=== PATIENT | female | born 1965 | race Caucasian/White ===

== ENCOUNTER 2017-03-03 13:09 | Emergency (ER) | payer OTHER ==
[~2017-03-03] VITALS: Ht 157.5 cm; Wt 79.5 kg
[~2017-03-03 13:09] MED LIST: FLUD0.1T PO; LEVO50TA11 PO; MECL-103 PO
--- OUTSIDE RECORDS SUMMARY | 2017-03-03 13:14 | XMS REPORT | Referral Summary ---
Author Author [facility] Organization [facility] Address Unknown Phone Unavailable Care Team Providers Care Loss Prevention Auditor Name Role Phone Alexandrea Marrero Primary Care Physician [phone] Encounter [facility] DEVENDRA [id number] Date(s): 12/25/15 - 12/25/15 [facility] [address] [place] [address] [phone] Discharge Diagnosis: Bilateral sacroiliitis. Discharge Disposition: 01-Home or Self Care Attending Physician: John Bess MD Admitting Physician: John Bess MD Vital Signs Most recent to 1 oldest [Reference Range]: Temperature Tympanic 36.3 degC [36.6-38.1 degC] *LOW* (12/25/15 12:20 PM) Peripheral Pulse 64 bpm Rate [60-100 bpm] (12/25/15 12:20 PM) Respiratory Rate 16 br/min [14-20 br/min] (12/25/15 12:20 PM) Blood Pressure 140/87 mmHg [90-140/60-90 mmHg] (12/25/15 12:20 PM) SpO2 100 % (12/25/15 12:20 PM) Problem List Condition Effective Dates Status Health Status Informant Acute back Active pain(Confirmed) Strain of lumbar Active region(Confirmed) Obesity(Confirmed) Active patient Allergies, Adverse Reactions, Alerts Substance Reaction Severity Status [place] Dizziness Medium Active Nausea penicillin Active Medications ibuprofen 0 Refill(s) Start Date: 09/05/14 Status: Ordered meloxicam 15 mg oral tablet 15 mg 1 tabs, Oral, Daily, # 30 tabs, 1 Refill(s), Pharmacy: [facility] [id number], 1 tabs Oral Daily,x30 days Start Date: 07/18/15 Stop Date: 09/16/15 Status: Ordered metFORMIN 500 mg oral tablet See Instructions, 1 tabs Oral BID, 0 Refill(s) Start Date: 12/25/15 Status: Ordered Results No data available for this section Immunizations No data available for this section Procedures Procedure Date Related Diagnosis Body Site Injection Sacroiliac Joint (Right)1 12/25/15 Cardiac catheterization 04/10/15 c section 1auto-populated from documented surgical case Social History Social History Type Response Smoking Status Never smoker Assessment and Plan No data available for this section
--- OUTSIDE RECORDS SUMMARY | 2017-03-03 13:14 | XMS REPORT | Referral Summary ---
Author Author [facility] Organization [facility] Address Unknown Phone Unavailable Care Team Providers Care Medical Nurse Name Role Phone Alexandrea Marrero Primary Care Physician [phone] Encounter VC Date(s): 07/31/15 - 07/31/15 [facility] [address] [place] [address] [place] Discharge Diagnosis: Lumbago syndrome Discharge Disposition: 01-Home or Self Care Attending Physician: Bernardo Perrin MD Admitting Physician: Bernardo Perrin MD Vital Signs Most recent to 1 oldest [Reference Range]: Temperature Tympanic 36.3 degC [36.6-38.1 degC] *LOW* (07/31/15 9:51 AM) Peripheral Pulse 88 bpm Rate [60-100 bpm] (07/31/15 9:51 AM) Respiratory Rate 16 br/min [14-20 br/min] (07/31/15 9:51 AM) Blood Pressure 136/96 mmHg [90-140/60-90 mmHg] (07/31/15 9:51 AM) Problem List Condition Effective Dates Status Health Status Informant Acute back Active pain(Confirmed) Strain of lumbar Active region(Confirmed) Obesity(Confirmed) Active patient Allergies, Adverse Reactions, Alerts Substance Reaction Severity Status [place] Dizziness Medium Active Nausea penicillin Active Medications ibuprofen 0 Refill(s) Start Date: 09/05/14 Status: Ordered meloxicam 15 mg oral tablet 15 mg 1 tabs, Oral, Daily, # 30 tabs, 1 Refill(s), Pharmacy: [facility] [id number], 1 tabs Oral Daily,x30 days Start Date: [...] Smoking Status Never smoker Assessment and Plan Extracted from: Title: Office Visit Note Author: Bernardo Perrin MD Date: 07/31/15 Assessment/Plan Lumbago syndrome Plan:I reviewed the MRI. It does showright central disc protrusion at L1-L2. I am going to see if we can consult Dr. Tyler for possible epidural. Andcontinue same restrictions.
--- OUTSIDE RECORDS SUMMARY | 2017-03-03 13:14 | XMS REPORT ---
Author Author Alexandrea Marrero [facility] eClinical[employer] Address Unknown Phone Unavailable Care Team Providers Care Pump Room Operator Name Role Phone Alexandrea Marrero Unavailable Allergies No Known Allergies Problems Problem Type Condition ICD-9 Code Onset Dates Condition Status Problem Overweight 278.02 Active Medications No Known Medications Vital Signs Date/Time: Jun 08, 2014 Height 62 inches Weight 196.4 lbs Temperature 98.9 F Blood Pressure Diastolic 82 mm Hg Blood Pressure Systolic 110 mm Hg Cardiac Monitoring Heart Rate 76 Beats per Minute BMI 35.92 Index Respiratory Rate 16 per Minute Results No Known Results Summary Purpose eClinicalWorks Submission
--- OUTSIDE RECORDS SUMMARY | 2017-03-03 13:14 | XMS REPORT ---
Author Author Alexandrea Marrero [facility] eClinical[employer] Address Unknown Phone Unavailable Care Team Providers Care Hat Ironer Name Role Phone Alexandrea Marrero CP Unavailable Allergies, Adverse Reactions, Alerts Substance Reaction Event Type Penicillin throat swelling Drug Allergy Problems Problem Type Condition ICD-9 Code Onset Dates Condition Status Assessment Overweight 278.02 Active Assessment Routine general medical examination at health care facility V70.0 Active Problem Overweight 278.02 Active Medications Medication Code System Code Instructions Start Date End Date Status Dosage Phentermine HCl [facility] [address]-69 15 MG Orally Once a day April 08, 2015 May 08, 2015 1 capsule Procedures Procedure Coding System Code Date ECG RECORDING CPT-4 02413 April 08, 2015 OFFICE VISIT, EST-LOW COMPLEXITY (15 MIN.) CPT-4 72178 April 08, 2015 Vital Signs Date/Time: April 08, 2015 Height 62 in Weight 203.5 lbs Temperature 98.5 F Blood Pressure Diastolic 76 mm Hg Blood Pressure Systolic 106 mm Hg Cardiac Monitoring Heart Rate 96 /min BMI 37.22 Index Respiratory Rate 16 /min Results No Known Results Summary Purpose eClinicalWorks Submission
--- OUTSIDE RECORDS SUMMARY | 2017-03-03 13:14 | XMS REPORT | Continuity of Care Document ---
Author Author [facility] Organization [facility] Address Unknown Phone Unavailable Care Team Providers Care Agile Tester Name Role Phone PARRIS MORRIS MD Primary Care Physician [phone] Problems Medical Problems Problem Onset Date Status Migraine Unknown Active Muscle spasm Unknown Active Dizziness Unknown Active Migraine Unknown Active Patient left without being seen Unknown Active Medications Medication Dose Route Sig Days/Qty Instructions Order Date Discontinued Date Status [No Home Meds] 03/21/10 04/08/12 Discontinued Social History Social History Problem Response Recorded Date/Time Hx Alcohol Use No 09/18/2014 8:46am Hospital Discharge Instructions No hospital discharge instructions. Plan of Care No plan of care. Functional Status Query Response Date Recorded Physical Hygiene Self July 25, 2014 9:30pm Physical Hygiene Self July 25, 2014 9:30pm Allergies, Adverse Reactions, Alerts Allergen Type Severity Reaction Status Last Updated Penicillin Allergy Unknown Active 01/07/15 Immunizations Name Given Type Hx Tetanus, Diptheria, Pertussis No Historical Hx Tetanus Diptheria No Historical Hx Tetanus, Diptheria, Pertussis No Historical Hx Tetanus Toxoid Vaccination No Historical Vital Signs Acute Vital Signs Vital Response Date/Time Temperature (Fahrenheit) 97.6 deg F (96.8 - 99.1) Temperature (Calculated Celsius) 36.87260 degrees C (36.0 - 37.3) Pulse Rate (adult) 93 bpm (60 - 100) Respiratory Rate 18 breaths/min (10 - 20) O2 Sat by Pulse Oximetry 96 % (90 - 100) Blood Pressure 134/76 mm Hg Height (Feet) 0 feet Height (Inches) 0 inches Results Test Source Date Result Interp. Ref. Range Comments Activated Partial Thromboplast Time March 30, 2011 11:25am 31.6 SEC N 24- 36 Alanine Aminotransferase (ALT/SGPT) July 25, 2014 9:47pm 40 U/L N 9- 52 Albumin July 25, 2014 9:47pm 4.1 G/DL N 3.5-5.0 Albumin/Globulin Ratio July 25, 2014 9:47pm 1.2 RATIO N 1.1-2.2 Alkaline Phosphatase July 25, 2014 9:47pm 112 U/L N 38-126 Anion Gap July 25, 2014 9:47pm 10 MEQ/L N 5-15 Arterial Blood Base Excess March 30, 2011 8:45pm 1.8 MMOL/L N -2.0-2.0 Arterial Blood HCO3 March 30, 2011 8:45pm 26 MEQ/L N 22-26 Arterial Blood Oxygen Content March 30, 2011 8:45pm 2.0 - Arterial Blood Oxygen Saturation March 30, 2011 8:45pm 97.0 % N 95.0- 98.0 Arterial Blood Partial Pressure CO2 March 30, 2011 8:45pm 37 MMHG N 34- 45 Arterial Blood Total CO2 March 30, 2011 8:45pm 26.8 MEQ/L N 23-27 Arterial Blood pH March 30, 2011 8:45pm 7.450 N 7.350-7.450 Arterial Blood pO2 at Patient Temp March 30, 2011 8:45pm 87 MMHG N 80- 100 Aspartate Amino Transf (AST/SGOT) July 25, 2014 9:47pm 24 U/L N 14- 36 Atypical/Reactive Lymphocytes April 29, 2009 4:45pm 0.1 T/MM3 H 0-0 B-Type Natriuretic Peptide March 30, 2011 11:25am < 15 PG/ML L 15-100 BUN/Creatinine Ratio July 25, 2014 9:47pm 26 RATIO N 6-26 Band Neutrophils # March 30, 2011 11:25am 0.1 T/MM3 - Band Neutrophils % March 30, 2011 11:25am 1.0 % N 0-6 Basophils # (Auto) July 25, 2014 9:44pm 0.1 T/MM3 N 0-0.2 Basophils # (Manual) August 29, 2009 1:45am 0.0 T/MM3 N 0-0.2 Basophils % (Manual) August 29, 2009 1:45am 0.0 % N 0-2 Basophils (%) (Auto) July 25, 2014 9:44pm 0.7 % N 0-2 Blood Urea Nitrogen July 25, 2014 9:47pm 18.0 MG/DL H 7-17 Calcium Level July 25, 2014 9:47pm 9.4 MG/DL N 8.4-10.2 Calculated Osmolality July 25, 2014 9:47pm 276 MOSM/KG N 261-280 Carbon Dioxide Level July 25, 2014 9:47pm 29 MEQ/L N 22-30 Chemistry Specimen Hemolysis July 25, 2014 9:47pm < 15 0-25 0-25: No Hemolysis.26-70: Slight Hemolysis - can falsely elevate K and Urine Protein. 71-285: Moderate Hemolysis - can falsely elevate K, Troponin I, CA 19-9, PTH, CSF GLucose, and Urine Protein, and can falsely decrease Phenytoin. 286-999: Gross Hemolysis - can falsely elevate K, Troponin I, CA 19-9, PTH, CSF Glucose, and Urine Protine, and can falsely decrease Phenytoin. Recommend specimen recollection. Chloride Level July 25, 2014 9:47pm 102 MEQ/L N 98-107 Cholesterol Level March 20, 2008 9:35am 153 MG/DL N 120-200 Cholesterol/HDL Ratio March 20, 2008 9:35am 5.0 RATIO H 0-4.0 Conjugated Bilirubin March 30, 2011 11:25am 0.00 MG/DL N 0.00-0.30 Creatinine July 25, 2014 9:47pm 0.7 MG/DL N 0.7-1.2 D-Dimer March 30, 2011 8:20pm 165 NG/ML N 0-230 <224 NG/ML=PRESUMPTIVE NEGATIVE FOR PE OR DVT>224 NG/ML=ADDITIONAL EVALUATION FOR PE OR DVT RECOMMENDED Differential Total Cells Counted March 30, 2011 11:25am 100 % - Eosinophils # (Auto) July 25, 2014 9:44pm 0.3 T/MM3 N 0-0.5 Eosinophils # (Manual) March 30, 2011 11:25am 0.2 T/MM3 N 0-0.5 Eosinophils % (Manual) March 30, 2011 11:25am 2.0 % N 0-4 Eosinophils (%) (Auto) July 25, 2014 9:44pm 2.3 % N 0-4 Free Thyroxine March 20, 2008 9:35am 0.94 NG/DL N 0.78-2.19 Globulin July 25, 2014 9:47pm 3.4 G/DL N 2.4-3.6 Glomerular Filtration Rate Calc July 25, 2014 9:47pm 89 - Glucose Level July 25, 2014 9:47pm 147 MG/DL H 65-110 Group A Streptococcus Screen March 14, 2013 11:45am Negative - Strep culture confirmation to follow HDL Cholesterol Direct March 20, 2008 9:35am 26 MG/DL L 40-60 Hematocrit July 25, 2014 9:44pm 42.7 % N 36-46 Hemoglobin July 25, 2014 9:44pm 14.3 GM/DL N 12-16 Human Chorionic Gonadotropin, Qual March 30, 2011 11:25am Negative - Icterus Index July 25, 2014 9:47pm < 2 0-7 Immature Granulocyte # (Auto) July 25, 2014 9:44pm 0.04 T/MM3 H 0.00- 0.03 Immature Granulocyte % (Auto) July 25, 2014 9:44pm 0.4 % N 0.0-0.5 LDL Cholesterol, Calculated March 20, 2008 9:35am [id number] - Lab Scanned Report January 07, 2015 11:47am LAB TEST FORM REQUEST - Lymphocytes # (Auto) July 25, 2014 9:44pm 4.0 T/MM3 N 1-4.8 Lymphocytes # (Manual) March 30, 2011 11:25am 3.7 T/MM3 N 1-4.8 Lymphocytes % (Manual) March 30, 2011 11:25am 36.0 % N 23-45 Lymphocytes (%) (Auto) July 25, 2014 9:44pm 35.9 % N 23-45 Mean Corpuscular Hemoglobin July 25, 2014 9:44pm 29.4 UUG N 26-34 Mean Corpuscular Hemoglobin Concent July 25, 2014 9:44pm 33.5 GM/DL N 31-37 Mean Corpuscular Volume July 25, 2014 9:44pm 87.7 UM3 N 80-100 Mean Platelet Volume July 25, 2014 9:44pm 10.8 UM3 N 9.4-12.4 Monocytes # (Auto) July 25, 2014 9:44pm 0.6 T/MM3 N 0-0.8 Monocytes # (Manual) August 29, 2009 1:45am 0.7 T/MM3 N 0-0.8 Monocytes % (Manual) August 29, 2009 1:45am 5.0 % N 0-9.0 Monocytes (%) (Auto) July 25, 2014 9:44pm 5.5 % N 0-9.0 Neutrophils # (Auto) July 25, 2014 9:44pm 6.1 T/MM3 N 1.8-7.7 Neutrophils # (Manual) March 30, 2011 11:25am 6.3 T/MM3 N 1.8-7.7 Neutrophils % (Manual) March 30, 2011 11:25am 61.0 % N 33-66 Neutrophils (%) (Auto) July 25, 2014 9:44pm 55.2 % N 33-66 Oxygen Delivery Method (LAB) March 30, 2011 8:45pm Nasal cannula,liters - Platelet Count July 25, 2014 9:44pm 282 T/MM3 N 130-400 Potassium Level July 25, 2014 9:47pm 3.8 MEQ/L N 3.6-5 Prothromb Time International Ratio March 30, 2011 11:25am 0.96 N 0.86- 1.10 THERAPUTIC RANGE=2.00-3.00 FOR ANTI-THROMBOSIS THERAPUTIC RANGE=2.50- 3.50 FOR IMPLANTED VALVE RDW Standard Deviation July 25, 2014 9:44pm 38.5 FL N 36.9-50.2 Reactive Lymphocytes April 29, 2009 4:45pm 1.0 % H 0-0 Red Blood Count July 25, 2014 9:44pm 4.87 M/MM3 N 4.00-5.20 Rubella Screen January 07, 2015 10:23am Positive - Sodium Level July 25, 2014 9:47pm 141 MEQ/L N 134-144 Thyroid Stimulating Hormone (TSH) March 20, 2008 9:35am 2.70 MIU/ML N 0.47-4.68 Total Bilirubin July 25, 2014 9:47pm 0.40 MG/DL N 0.20-1.30 Total Protein July 25, 2014 9:47pm 7.5 G/DL N 6.3-8.2 Triglycerides Level March 20, 2008 9:35am 109 MG/DL N 0-150 Troponin I July 25, 2014 9:47pm < 0.012 ng/ml 0-0.12 Turbidity July 25, 2014 9:47pm < 20 0-20 Unconjugated Bilirubin March 30, 2011 11:25am 0.50 MG/DL N 0.00-1.10 Urine Acetaminophen Screen March 30, 2011 8:30pm Negative NG/ML - Urine Bacteria July 25, 2014 10:21pm 1+ H - Has specimen been collected/obtained? Y Urine Bilirubin July 25, 2014 10:21pm Negative - Has specimen been collected/obtained? Y Urine Blood July 25, 2014 10:21pm 1+ H - Has specimen been collected /obtained? Y Urine Collection Type July 25, 2014 10:21pm Cleancatch-midstream - Has specimen been collected/obtained? Y Urine Color July 25, 2014 10:21pm Yellow - Has specimen been collected/obtained? Y Urine Culture Indicated August 29, 2009 1:43am Cult not set up - Has specimen been collected/obtained? Y Urine Drug Screen Confirmation March 30, 2011 9:07pm Sent out - Urine Drug Screen Other August 29, 2009 3:50am Sent out - Urine Glucose (UA) July 25, 2014 10:21pm Negative - Has specimen been collected/obtained? Y Urine Ketones July 25, 2014 10:21pm Negative - Has specimen been collected/obtained? Y Urine Leukocyte Esterase July 25, 2014 10:21pm Negative - Has specimen been collected/obtained? Y Urine Methadone Screen March 30, 2011 8:30pm Negative NG/ML - Urine Methamphetamines Screen March 30, 2011 8:30pm Negative NG/ML - Urine Nitrite July 25, 2014 10:21pm Negative - Has specimen been collected/obtained? Y Urine Phencyclidine Screen March 30, 2011 8:30pm Negative NG/ML - Urine Protein July 25, 2014 10:21pm Negative - Has specimen been collected/obtained? Y Urine RBC July 25, 2014 10:21pm 1-3 /HPF - Has specimen been collected/obtained? Y Urine Specific [place] July 25, 2014 10:21pm >=1.030 H - Has specimen been collected/obtained? Y Urine Squamous Epithelial Cells July 25, 2014 10:21pm 10-20 - Has specimen been collected/obtained? Y Urine Tricyclic Antidepressants March 30, 2011 8:30pm Negative NG/ML - Urine Turbidity July 25, 2014 10:21pm Sl cloudy - Has specimen been collected/obtained? Y Urine Urobilinogen July 25, 2014 10:21pm 0.2 EU/DL - Has specimen been collected/obtained? Y Urine WBC July 25, 2014 10:21pm 1-3 /HPF - Has specimen been collected/obtained? Y Urine pH July 25, 2014 10:21pm 6.0 - Has specimen been collected/ obtained? Y VLDL Cholesterol March 20, 2008 9:35am < 20 MG/DL 0-28 White Blood Count July 25, 2014 9:44pm 11.1 T/MM3 H 4.5-11.0 Blood Culture Blood March 14, 2013 12:37pm NO GROWTH AFTER 5 DAYS Group A Streptococcus Culture Throat March 14, 2013 12:49pm Procedures No known history of procedures. Encounters Encounter Location Date/Time Departed Emergency Room [facility] 01/07/15 11:48am Recent Diagnosis
--- OUTSIDE RECORDS SUMMARY | 2017-03-03 13:14 | XMS REPORT ---
Author Author Alexandrea Marrero [facility] eClinicalWorks Address Unknown Phone Unavailable Care Team Providers Care Narrative Writer Name Role Phone Alexandrea Marrero CP Unavailable Allergies, Adverse Reactions, Alerts Substance Reaction Event Type Penicillin throat swelling Drug Allergy Fertile Info Not Available Drug Allergy Problems Problem Type Condition Code Onset Dates Condition Status Problem Overweight 278.02 Active Assessment Dysuria R30.0 Active Problem Type 2 diabetes mellitus without complications E11.9 Active Assessment Type 2 diabetes mellitus without complications E11.9 Active Assessment Acute vaginitis N76.0 Active Assessment Other abnormal glucose R73.09 Active Medications Medication Code System Code Instructions Start Date End Date Status Dosage Metformin HCl [facility] [address]-42 1000 MG Orally Twice a day Sep 10, 2015 1/2 tab twice a day for 2 wks then 1 tab twice a day Diflucan [facility] [address]-47 150 MG Orally x1, may repeat in a week Sep 10, 2015 1 tablet Procedures Procedure Coding System Code Date OFFICE VISIT, EST-LOW COMPLEXITY (15 MIN.) CPT-4 86685 Sep 10, 2015 URINALYSIS, IN HOUSE CPT-4 60102 Sep 10, 2015 Vital Signs Date/Time: Sep 10, 2015 Height 62 in Weight 194.8 lbs Temperature 98.2 F Blood Pressure Diastolic 80 mm Hg Blood Pressure Systolic 113 mm Hg Cardiac Monitoring Heart Rate 81 /min BMI 35.63 Index Respiratory Rate 16 /min Results Name Result Date Reference Range Unit Abnormality Flag In House Urinalysis, automated ----PRO negative 20150910 ----pH 5.0 20150910 ----BLO trace-intact 20150910 ----SG 1.025 20150910 ----KET negative 20150910 ----YULY negative 20150910 ----Color dark yellow 20150910 ----URO 0.2 20150910 ----Clarity sl cloudy 20150910 ----GLU 500 20150910 ----NIT negative 20150910 ----BRENDA negative 20150910 Summary Purpose eClinicalWorks Submission
--- OUTSIDE RECORDS SUMMARY | 2017-03-03 13:14 | XMS REPORT | Continuity of Care Document ---
Author Author [facility] Organization [facility] Address Unknown Phone Unavailable Care Team Providers Care Mercerizer Machine Operator Name Role Phone LOVE PASTRANA APRN Primary Care Physician [phone] Insurance Providers Payer Name Policy Number Subscriber Name Relationship Medicaid/Mps [employer] Mohit Copeland 19 Self Problems Medical Problems Problem Onset Date Status Migraine Unknown Active Muscle spasm Unknown Active Dizziness Unknown Active Migraine Unknown Active Medications Medication Dose Route Sig Days/Qty Instructions Order Date Discontinued Date Status [No Home Meds] 03/21/10 04/08/12 Discontinued Social History Social History Problem Response Recorded Date/Time Smoking Status Current some day smoker 07/25/2014 9:30pm Hx Alcohol Use No 07/25/2014 9:30pm Query Response Start Date Stop Date Smoking Status Never smoker Hospital Discharge Instructions No hospital discharge instructions. Plan of Care No plan of care. Functional Status Query Response Date Recorded Physical Hygiene Self July 25, 2014 9:30pm Disabilities None July 25, 2014 9:30pm Devices Used None July 25, 2014 9:30pm Dressing Self July 25, 2014 9:30pm Ambulation Self July 25, 2014 9:30pm Diet Self July 25, 2014 9:30pm Mental Status Alert July 25, 2014 11:55pm Disabilities None July 25, 2014 9:30pm Devices Used None July 25, 2014 9:30pm Physical Hygiene Self July 25, 2014 9:30pm Dressing Self July 25, 2014 9:30pm Ambulation Self July 25, 2014 9:30pm Diet Self July 25, 2014 9:30pm Allergies, Adverse Reactions, Alerts Allergen Type Severity Reaction Status Last Updated Penicillin Allergy Unknown Active 03/14/13 Immunizations Name Given Type Hx Tetanus, Diptheria, Pertussis No Historical Hx Tetanus Diptheria No Historical Hx Tetanus, Diptheria, Pertussis No Historical Hx Tetanus Toxoid Vaccination No Historical Vital Signs Acute Vital Signs Vital Response Date/Time Temperature (Fahrenheit) 97.8 deg F (96.8 - 99.1) Temperature (Calculated Celsius) 36.14676 degrees C (36.0 - 37.3) Pulse Rate (adult) 72 bpm (60 - 100) O2 Sat by Pulse Oximetry 98 % (90 - 100) Blood Pressure 141/91 mm Hg Height 5 ft 2 in Weight 198 lb Body Mass Index 36.0 kg/m^2 Results Test Source Date Result Interp. Ref. [...] March 30, 2011 8:45pm 7.450 N 7.350-7.450 Aspartate Amino Transf (AST/SGOT) July 25, 2014 9:47pm 24 U/L N 14- 36 B-Type Natriuretic Peptide March 30, 2011 11:25am [...] 25, 2014 9:47pm 29 MEQ/L N 22-30 Chloride Level July 25, 2014 9:47pm 102 [...] 25, 2014 9:47pm 3.4 G/DL N 2.4-3.6 Glucose Level July 25, 2014 9:47pm 147 MG/DL H 65-110 Group A Streptococcus Screen March 14, 2013 11:45am Negative - Strep culture confirmation to follow Hematocrit July 25, 2014 9:44pm 42.7 % N 36-46 Hemoglobin July 25, 2014 9:44pm 14.3 GM/DL N 12-16 Human Chorionic Gonadotropin, Qual March 30, 2011 11:25am Negative - LDL Cholesterol, Calculated March 20, 2008 9:35am 107.90339 - Lymphocytes # (Auto) July 25, 2014 [...] 25, 2014 9:44pm 55.2 % N 33-66 Platelet Count July 25, 2014 9:44pm 282 [...] 25, 2014 9:44pm 4.87 M/MM3 N 4.00-5.20 Sodium Level July 25, 2014 9:47pm 141 MEQ/L N 134-144 Thyroid Stimulating Hormone (TSH) March 20, 2008 9:35am 2.70 MIU/ML N 0.47-4.68 Total Bilirubin July 25, 2014 9:47pm 0.40 MG/DL N 0.20-1.30 Total Protein July 25, 2014 9:47pm 7.5 G/DL N 6.3-8.2 Triglycerides Level March 20, 2008 9:35am 109 MG/DL N 0-150 Troponin I July 25, 2014 9:47pm < 0.012 ng/ml 0-0.12 Unconjugated Bilirubin March 30, 2011 11:25am 0.50 MG/DL N 0.00-1.10 Urine Amphetamines Screen March 30, 2011 8:30pm Negative NG/ML - Urine Bacteria July 25, 2014 10:21pm 1+ H - Has specimen been collected/obtained? Y Urine Barbiturates Screen March 30, 2011 8:30pm Negative NG/ML - Urine Benzodiazepines Screen March 30, 2011 8:30pm Negative NG/ML - Urine Bilirubin July 25, 2014 10:21pm Negative - Has specimen been collected/obtained? Y Urine Blood July 25, 2014 10:21pm 1+ H - Has specimen been collected /obtained? Y Urine Cocaine Screen March 30, 2011 8:30pm Negative NG/ML - Urine Collection Type July 25, 2014 10:21pm [...] - Has specimen been collected/obtained? Y Urine Methamphetamines Screen March 30, 2011 8:30pm Negative NG/ML - Urine Nitrite July 25, 2014 10:21pm Negative - Has specimen been collected/obtained? Y Urine Opiates Screen March 30, 2011 8:30pm Positive NG/ML - Urine Phencyclidine Screen March 30, 2011 8:30pm Negative NG/ML - Urine Protein July 25, 2014 10:21pm Negative - Has specimen been collected/obtained? Y Urine RBC July 25, 2014 10:21pm 1-3 /HPF - Has specimen been collected/obtained? Y Urine Specific [place] July 25, 2014 10:21pm >=1.030 H - [...] 25, 2014 9:44pm 11.1 T/MM3 H 4.5-11.0 Chemistry Specimen Hemolysis July 25, 2014 9:47pm [...] can falsely decrease Phenytoin. Recommend specimen recollection. Oxygen Delivery Method (LAB) March 30, 2011 8:45pm Nasal cannula,liters - Lab Scanned Report August 07, 2013 7:39pm LAB TEST FORM REQUEST [id number] - HDL Cholesterol Direct March 20, 2008 9:35am 26 MG/DL L 40-60 Atypical/Reactive Lymphocytes April 29, 2009 4:45pm 0.1 T/MM3 H 0-0 Urine Methadone Screen March 30, 2011 8:30pm Negative NG/ML - Urine Cannabinoids Screen March 30, 2011 8:30pm Negative NG/ML - Turbidity July 25, 2014 9:47pm < 20 0-20 Glomerular Filtration Rate Calc July 25, 2014 9:47pm 89 - Immature Granulocyte # (Auto) July 25, 2014 9:44pm 0.04 T/MM3 H 0.00- 0.03 Immature Granulocyte % (Auto) July 25, 2014 9:44pm 0.4 % N 0.0-0.5 Arterial Blood pO2 at Patient Temp March 30, 2011 8:45pm 87 MMHG N 80- 100 Icterus Index July 25, 2014 9:47pm < 2 0-7 Urine Acetaminophen Screen March 30, 2011 8:30pm Negative NG/ML - Blood Culture Blood March 14, 2013 12:37pm NO GROWTH AFTER 5 DAYS Group A Streptococcus Culture Throat March 14, 2013 12:49pm Name: MOHIT COPELAND Unit #: [id number] : 1965 Sex: F Loc / Svc: [facility] DOS: 06/13/14 Signed Report #: [id number] DIAGNOSTIC IMAGING REPORT TYPE OF EXAM: CT RENAL W/O CONTRAST Dictated By: JOANNE AMATO MD INDICATION: ITS.REASON: 724.[address] RENAL W/O CONTRAST: Comparison: CT abdomen and pelvis dated April 29, 2009 Technique: Axial CT images were performed through the abdomen and pelvis without intravenous contrast. Findings: Some atelectasis in both lung bases. There is a new noncalcified 6 mm nodule in the right lower lobe on image number 25. The unenhanced liver, gallbladder, spleen , pancreas and adrenal glands are normal. Both kidneys appear normal without stone disease or hydronephrosis. No ureteral stones. No abdominal or pelvic lymphadenopathy. Small and large bowel are grossly normal. The appendix is normal. Bladder is decompressed making evaluation for wall thickening difficult. No gross bladder abnormality. No free fluid. Impression 1. No urolithiasis or clear etiology for the patient's hematuria. 2. 6-mm right lower lobe nodule which appears to be new since 2008. Follow-up CT is recommended in 3 to 6 months. . Procedures No known history of procedures. Encounters Encounter Location Date/Time Departed Emergency Room [facility] 07/25/14 8:48pm Registered Clinic [facility] 06/13/14 10:25am Recent Diagnosis
--- OUTSIDE RECORDS SUMMARY | 2017-03-03 13:14 | XMS REPORT | Referral Summary ---
Author Author [facility] Organization [facility] Address Unknown Phone Unavailable Care Team Providers Care Cloud Consultant Name Role Phone Alexandrea Marrero Primary Care Physician [phone] Encounter VC Date(s): 07/02/15 - 07/02/15 [facility] [address] [place] [address] [place] [address] Discharge Diagnosis: Acute back pain Discharge Diagnosis: Acute back pain Discharge Disposition: 01-Home or Self Care Attending Physician: Bernardo Perrin MD Admitting Physician: Bernardo Perrin MD Vital Signs Most recent to 1 oldest [Reference Range]: Temperature Tympanic 36.4 degC [36.6-38.1 degC] *LOW* (07/02/15 10:15 AM) Peripheral Pulse 68 bpm Rate [60-100 bpm] (07/02/15 10:15 AM) Respiratory Rate 20 br/min [14-20 br/min] (07/02/15 10:15 AM) Blood Pressure 140/100 mmHg [90-140/60-90 mmHg] (07/02/15 10:15 AM) Problem List Condition Effective Dates Status Health Status Informant Acute back Active pain(Confirmed) Strain of lumbar Active region(Confirmed) Obesity(Confirmed) Active patient Allergies, Adverse Reactions, Alerts Substance Reaction Severity Status [place] Dizziness Medium Active Nausea penicillin Active Medications ibuprofen 0 Refill(s) Start Date: 09/05/14 Status: Ordered meloxicam 15 mg oral tablet 15 mg 1 tabs, Oral, Daily, # 30 tabs, 1 Refill(s), Pharmacy: [id number], 1 tabs Oral Daily,x30 days Start Date: [...] Visit Note Author: Bernardo Perrin MD Date: 07/02/15 Assessment/Plan Acute back pain Plan:I reviewedthe note from Alex Hahnregarding your physical therapy progress. He notes and in his assessment that you're symptoms are regressingand you have worse posturing. I am unsure why you're not improvingas he should be. I'm going to check a regular x-ray. For now continue the same restrictions. If this x-ray is normal and MRI of your back.
--- OUTSIDE RECORDS SUMMARY | 2017-03-03 13:14 | XMS REPORT ---
Author Author Alexandrea Marrero Organization [employer] Address Unknown Phone Unavailable Care Team Providers Care Access Services Assistant Name Role Phone Alexandrea Marrero CP Unavailable Allergies, Adverse Reactions, Alerts Substance Reaction Event Type Penicillin throat swelling Drug Allergy Problems Problem Type Condition ICD-9 Code Onset Dates Condition Status Assessment Spasm of muscle 728.85 Active Assessment Neck sprain and strain 847.0 Active Problem Overweight 278.02 Active Assessment Hematuria, unspecified 599.70 Active Medications Medication Code System Code Instructions Start Date End Date Status Dosage Lidoderm [facility] [address]-15 5 % Externally leave on neck for 12 hrs, remove for 12h then repeat Jul 27, 2014 Oct 25, 2014 Active 1 patch to intact skin remove after 12 hours Cyclobenzaprine HCl [facility] [address]-53 10 MG Orally up to three times a day. May cause drowsiness Jul 27, 2014 Sep 25, 2014 Active 1 tablet Ibuprofen [facility] [address]-95 600 MG Orally every 6 hrs Jul 27, 2014Sep Active 1 tablet Procedures Procedure Coding System Code Date INJECTION (plus drug) CPT-4 66186 Jul 27, 2014 OFFICE VISIT, EST-LOW COMPLEXITY (15 MIN.) CPT-4 40958 Jul 27, 2014 TORADOL 30MG CPT-4 J1885 Jul 27, 2014 Vital Signs Date/Time: Jul 27, 2014 Height 62 inches Weight 201.12 lbs Temperature 97.9 F Blood Pressure Diastolic 78 mm Hg Blood Pressure Systolic 122 mm Hg Cardiac Monitoring Heart Rate 60 Beats per Minute BMI 36.78 Index Respiratory Rate 16 per Minute Results No Known Results Immunizations Vaccine Administration Date toradol Jul 27, 2014 Summary Purpose [employer] Submission
--- OUTSIDE RECORDS SUMMARY | 2017-03-03 13:14 | XMS REPORT | Referral Summary ---
Author Author [facility] Organization [facility] Address Unknown Phone Unavailable Care Team Providers Care Head Of Advertising Name Role Phone Alexandrea Marrero Primary Care Physician [phone] Encounter VC Date(s): 07/31/15 - 07/31/15 [facility] [address] [place] [address] Discharge Diagnosis: Lumbago syndrome Discharge Disposition: 01-Home [...] Adverse Reactions, Alerts Substance Reaction Severity Status [place] Dizziness Medium Active Nausea penicillin Active Medications ibuprofen 0 Refill(s) Start Date: 09/05/14 Status: Ordered meloxicam 15 mg oral tablet 15 mg 1 tabs, Oral, Daily, # 30 tabs, 1 Refill(s), Pharmacy: [id number], 1 tabs Oral Daily,x30 days Start Date: 07/18/15 Stop Date: 09/16/15 Status: Ordered Results No data available for this section Immunizations No data available for this section Procedures Procedure Date Related Diagnosis Body Site Cardiac catheterization 04/10/15 Social History Social History Type Response Smoking [...]
--- OUTSIDE RECORDS SUMMARY | 2017-03-03 13:14 | XMS REPORT | Referral Summary ---
Author Author [facility] Organization [facility] Address Unknown Phone Unavailable Care Team Providers Care Manager Culture Name Role Phone Alexandrea Marrero Primary Care Physician [phone] Encounter VC Date(s): 05/14/15 - 05/14/15 [facility] [address] [place] [address] Discharge Disposition: 01-Home or Self Care Attending Physician: Bernardo Perrin MD Admitting Physician: Bernardo Perrin MD Vital Signs Most recent to 1 oldest [Reference Range]: Temperature Tympanic 36.9 degC [36.6-38.1 degC] (05/14/15 1:05 PM) Peripheral Pulse 80 bpm Rate [60-100 bpm] (05/14/15 1:05 PM) Respiratory Rate 22 br/min [14-20 br/min] *HI* (05/14/15 1:05 PM) Blood Pressure 124/74 mmHg [90-140/60-90 mmHg] (05/14/15 1:05 PM) Problem List Condition Effective Dates Status Health Status Informant Acute back Active pain(Confirmed) Strain of lumbar Active region(Confirmed) Obesity(Confirmed) Active patient Allergies, Adverse Reactions, Alerts Substance Reaction Severity Status [place] Dizziness Medium Active Nausea penicillin Active Medications ibuprofen 0 Refill(s) Start Date: 09/05/14 Status: Ordered meloxicam 15 mg oral tablet 15 mg 1 tabs, Oral, Daily, # 30 tabs, 1 Refill(s), Pharmacy: [facility] [id number], 1 tabs Oral Daily,x30 days Start Date: 07/18/15 Stop Date: 09/16/15 Status: Ordered Results No data available for this section Immunizations No data available for this section Procedures Procedure Date Related Diagnosis Body Site Cardiac catheterization 7/1/15 Social History Social History Type Response Smoking Status Never smoker Assessment and Plan Extracted from: Title: Office Visit Note Author: Bernardo Perrin MD Date: 05/14/15 Assessment/Plan Acute back pain Plan: I am going to have you start on muscle relaxers and prednisone and have you follow-up in one week. I am removing you from work. If you develop any worsening symptoms prior to the next appointment call or return. If you have weakness in the leg that is an emergency and should be evaluated right away. Orders: cyclobenzaprine, 10 mg 1 tabs, Oral, BID, as needed for spasm, X 30 days, # 60 tabs, 0 Refill(s), Pharmacy: [facility] [id number], 1 tabs Oral BID,x30 days,PRN:as needed for spasm predniSONE, See Instructions, Take 6 tabs on day one and then decrease by one tablet daily until gone., # 21 tabs, 0 Refill(s), Pharmacy: [facility] [id number], Take 6 tabs on day one and then decrease by one tablet daily until gone.
--- OUTSIDE RECORDS SUMMARY | 2017-03-03 13:14 | XMS REPORT | Referral Summary ---
Author Author [facility] Organization [facility] Address Unknown Phone Unavailable Care Team Providers Care Coppersmith Apprentice Name Role Phone Ladonna Marreroy Primary Care Physician [phone] Encounter VC DEVENDRA [id number] Date(s): 06/30/16 - 07/04/16 [facility] [address] [place] [address] Discharge Diagnosis: Dizziness Discharge Diagnosis: Post-concussion vertigo Discharge Diagnosis: Concussion Discharge Diagnosis: DM2 (diabetes mellitus, type 2) Discharge Diagnosis: Nausea and vomiting Discharge Disposition: 01-Home or Self Care Attending Physician: Dfane Rodriguez JR, MD Admitting Physician: Dafne Rodriguez JR, MD Vital Signs Most recent to 1 oldest [Reference Range]: Temperature Oral 37.2 degC [35.8-37.3 degC] (07/04/16 4:14 PM) Peripheral Pulse 81 bpm Rate [60-100 bpm] (07/04/16 4:14 PM) Respiratory Rate 18 br/min [14-20 br/min] (07/04/16 4:14 PM) Blood Pressure 102/70 mmHg [90-140/60-90 mmHg] (07/04/16 4:14 PM) SpO2 92 % (07/04/16 4:14 PM) Remote Telemetry Ongoing (07/04/16 8:00 AM) Problem List Condition Effective Dates Status Health Status Informant Acute Active pain(Confirmed) At risk for Active injury(Confirmed)1 Acute back Active pain(Confirmed) Strain of lumbar Active region(Confirmed) Obesity(Confirmed) Active patient DM2 (diabetes Active mellitus, type 2)(Confirmed) 1Problem added automatically by system based on initiation of Risk for Injury Plan of Care Allergies, Adverse Reactions, Alerts Substance Reaction Severity Status [place] Dizziness Medium Active Nausea penicillin Active Medications Dry Eye Relief 1 drops, Eye-Both, BID, as needed for dry eyes, 0 Refill(s) Start Date: 06/30/16 Status: Ordered fluconazole 150 mg oral tablet 150 mg 1 tabs, Oral, q72hr Start Date: 06/30/16 Status: Ordered meloxicam 15 mg oral tablet 15 mg 1 tabs, Oral, Daily, # 30 tabs, 1 Refill(s), Pharmacy: [facility] [id number], 1 tabs Oral Daily,x30 days Start Date: 07/18/15 Stop Date: 09/16/15 Status: Ordered metFORMIN 500 mg oral tablet 500 mg 1 tabs, Oral, BID, 0 Refill(s) Start Date: 12/25/15 Status: Ordered Zofran 4 mg oral tablet 4 mg 1 tabs, Oral, q6hr, Nausea or Vomiting, # 30 tabs, 0 Refill(s), Pharmacy: [email or web address] [id number], 1 tabs Oral q6hr,PRN:Nausea or Vomiting Start Date: 07/04/16 Stop Date: 07/18/16 Status: Ordered Results Hematology Most recent to 1 oldest [Reference Range]: WBC [4.8-10.8 10.1 10*3/uL 10*3/uL] (07/04/16 7:31 AM) RBC [4.00-5.20] 4.74 (07/04/16 7:31 AM) Hgb [12.0-16.0 13.9 gm/dL gm/dL] (07/04/16 7:31 AM) Hct [37.0-47.0 %] 41.6 % (07/04/16 7:31 AM) MCV [82.0-99.0 fL] 87.8 fL (07/04/16 7:31 AM) MCH [27.0-32.0 pg] 29.3 pg (07/04/16 7:31 AM) MCHC [32.0-36.0 33.4 gm/dL gm/dL] (07/04/16 7:31 AM) RDW [11.5-14.5 %] 12.2 % (07/04/16 7:31 AM) Platelet [150-400 245 10*3/uL 10*3/uL] (07/04/16 7:31 AM) MPV [9.4-12.4 fL] 11.2 fL (07/04/1631 AM) Immature 0.4 % Granulocytes (07/04/1631 AM) [0.0-1.0 %] Neutrophils [51-75 62 % %] (07/04/1631 AM) Lymphocytes [20-46 30 % %] (07/04/16 AM) Monocytes [4-11 %] 5 % (07/04/1631 AM) Eosinophils [0-4 %] 2 % (07/04/16 AM) Basophils [0-2 %] 0 % (07/04/1631 AM) Neutro Absolute 6.30 10*3 [1.90-7.00 10*3] (07/04/16:31 AM) Lymph Absolute 3.04 10*3 [0.80-3.30 10*3] (07/04/1631 AM) [place] Absolute 0.55 10*3 [0.30-1.00 10*3] (07/04/16 AM) Eos Absolute 0.16 10*3 [0.00-0.50 10*3] (07/04/16:31 AM) Baso Absolute 0.03 10*3 [0.00-0.20 10*3] (07/04/1631 AM) Nucleated RBC 0.0 /100 WBC Automated [0 /100 (07/04/16 AM) WBC] Chemistry Most recent to 1 oldest [Reference Range]: Sodium Lvl [136-144 138 mEq/L mEq/L] (07/04/16 AM) Potassium Lvl 3.9 mEq/L [3.6-5.1 mEq/L] (07/04/16:31 AM) Chloride [99-109 102 mEq/L mEq/L] (07/04/16:31 AM) CO2 [22-32 mEq/L] 29 mEq/L (07/04/1631 AM) AGAP [3-20] 7 (07/04/1631 AM) BUN [4-20 mg/dL] 11 mg/dL (07/04/16 7:31 AM) Glucose Lvl [70-100 206 mg/dL mg/dL] *HI* (9/24/16 7:31 AM) Creatinine Lvl 0.76 mg/dL [0.44-1.03 mg/dL] (07/04/16 7:31 AM) eGFR [>60] >60 1 (07/04/16 7:31 AM) Calcium Lvl 9.0 mg/dL [8.6-10.0 mg/dL] (07/04/16 7:31 AM) Magnesium Lvl 1.7 mg/dL [1.8-2.5 mg/dL] *LOW* (07/04/16 7:31 AM) Lactic Acid Lvl 2.3 mEq/L [0.5-2.2 mEq/L] *HI* (06/30/16 2:18 PM) Blood Glucose, 223 mg/dL Capillary [70-100 *HI* mg/dL] (07/04/16 11:39 AM) 1Result Comment: Multiply eGFR results by 1.21 for race. Toxicology Most recent to 1 oldest [Reference Range]: Ethanol Lvl Not Detected (06/30/16 2:18 PM) Immunizations No data available for this section Procedures Procedure Date Related Diagnosis Body Site Injection Sacroiliac Joint (Right)1 12/25/15 Cardiac catheterization 04/10/15 c section 1auto-populated from documented surgical case Social History Social History Type Response Smoking Status Never smoker Assessment and Plan No data available for this section
--- OUTSIDE RECORDS SUMMARY | 2017-03-03 13:14 | XMS REPORT | Referral Summary ---
Author Organization Unknown Address Unknown Phone Unavailable Care Team Providers Care Cement Production Plant Operator Name Role Phone Alexandrea Marrero Primary Care Physician [phone] Encounter Date(s): 01/21/15 - 01/21/15 [facility] [address] [place] [address] Discharge Diagnosis: Ankle sprain Discharge Diagnosis: Contusion of right shoulder Discharge Disposition: Home or Self Care Attending Physician: Bernardo Perrin MD Admitting Physician: Bernardo Perrin MD Vital Signs Most recent to 1 oldest [Reference Range]: Temperature Tympanic 35.6 degC [36.6-38.1 degC] *LOW* (01/21/15 9:54 AM) Peripheral Pulse 80 bpm Rate [60-100 bpm] (01/21/15 9:54 AM) Respiratory Rate 14 br/min [14-20 br/min] (01/21/15 9:54 AM) Blood Pressure 126/82 mmHg [90-140/60-90 mmHg] (01/21/15 9:54 AM) Most recent to 1 oldest [Reference Range]: SpO2 96 % (01/21/15 9:54 AM) Problem List Condition Effective Dates Status Health Status Informant Obesity(Confirmed) Active patient Allergies, Adverse Reactions, Alerts Substance Reaction Severity Status penicillin Active Medications cyclobenzaprine 10 mg oral tablet 1 tabs, Oral, TID, as needed for spasm, # 30 tabs, 0 Refill(s) Start Date: 09/05/14 Status: Ordered ibuprofen 0 Refill(s) Start Date: 09/05/14 Status: Ordered Results No data available for this section Immunizations No data available for this section Procedures No data available for this section Social History Social History Type Response Smoking Status Never smoker Assessment and Plan Extracted from: Title: Office Visit Note Author: Bernardo Perrin MD Date: 4/13/15 Assessment/Plan Ankle sprain Contusion of right shoulder Plan: Return to regular duties at work. No restrictions. No follow-up needed.
--- OUTSIDE RECORDS SUMMARY | 2017-03-03 13:14 | XMS REPORT ---
Author Author Alexandrea Marrero [facility] [employer] Address Unknown Phone Unavailable Care Team Providers Care Rock Worker Name Role Phone Alexandrea Marrero Unavailable Allergies No Known Allergies Problems Problem Type Condition ICD-9 Code Onset Dates Condition Status Problem Overweight 278.02 Active Medications No Known Medications Vital Signs Date/Time: Jul 27, 2014 Height 62 inches Weight 201.12 lbs Temperature 97.9 F Blood Pressure Diastolic 78 mm Hg Blood Pressure Systolic 122 mm Hg Cardiac Monitoring Heart Rate 60 Beats per Minute BMI 36.78 Index Respiratory Rate 16 per Minute Results No Known Results Summary Purpose [employer]ClinicalWorks Submission
--- OUTSIDE RECORDS SUMMARY | 2017-03-03 13:14 | XMS REPORT ---
Author Author Alexandrea Marrero [facility] [employer] Address Unknown Phone Unavailable Care Team Providers Care Supervisor Motorcycle Repair Shop Name Role Phone Alexandrea Marrero Unavailable Allergies [...]
--- OUTSIDE RECORDS SUMMARY | 2017-03-03 13:14 | XMS REPORT ---
Author Author Alexandrea Marrero [facility] [employer] Address Unknown Phone Unavailable Care Team Providers Care Monogram Machine Operator Name Role Phone Alexandrea Marrero CP Unavailable Allergies No Known Allergies Problems Problem Type Condition Code Onset Dates Condition Status Problem Overweight 278.02 Active Problem Type 2 diabetes mellitus without complications E11.9 Active Medications No Known Medications Results No Known Results Summary Purpose [employer] Submission
--- OUTSIDE RECORDS SUMMARY | 2017-03-03 13:14 | XMS REPORT | Referral Summary ---
Author Author [facility] Organization [facility] Address Unknown Phone Unavailable Care Team Providers Care Tank Car Loader Name Role Phone Alexandrea Marrero Primary Care Physician [phone] Encounter VC Date(s): 05/21/15 - 05/21/15 [facility], [address] [place] [address]- Discharge Disposition: 01-Home or Self Care Attending Physician: Bernardo Perrin MD Admitting Physician: Bernardo Perrin MD Vital Signs Most recent to 1 oldest [Reference Range]: Temperature Tympanic 36.5 degC [36.6-38.1 degC] *LOW* (05/21/15 1:53 PM) Blood Pressure 132/80 mmHg [90-140/60-90 mmHg] (05/21/15 1:53 PM) Problem List Condition Effective Dates Status Health Status Informant Acute back Active pain(Confirmed) Strain of lumbar Active region(Confirmed) Obesity(Confirmed) Active patient Allergies, Adverse Reactions, Alerts Substance Reaction Severity Status [place] Dizziness Medium Active Nausea penicillin Active Medications ibuprofen 0 Refill(s) Start Date: 09/05/14 Status: Ordered meloxicam 15 mg oral tablet 15 mg 1 tabs, Oral, Daily, # 30 tabs, 1 Refill(s), Pharmacy: [facility] [id number], 1 tabs Oral Daily,x30 days Start Date: 07/18/15 Stop Date: 09/16/15 Status: Ordered Results No data available for this section Immunizations No data available for this section Procedures Procedure Date Related Diagnosis Body Site Cardiac catheterization 04/10/15 Social History Social History Type Response Smoking Status Never smoker Assessment and Plan Extracted from: Title: Office Visit Note Author: Bernardo Perrin MD Date: 05/21/15 Assessment/Plan Acute back pain Plan: I am adding physical therapy and meloxicam. I have ordered 10 lb weight lifting restriction and no frequent bending and may need to change positions frequently. Follow up in 3 weeks. Ordered: Physical Therapy Evaluation 01036 Orders: meloxicam, 15 mg 1 tabs, Oral, Daily, # 30 tabs, 0 Refill(s), Pharmacy : [id number], 1 tabs Oral Daily,x30 days
--- OUTSIDE RECORDS SUMMARY | 2017-03-03 13:14 | XMS REPORT ---
Author Author Alexandrea Marrero [facility] eClinicalWorks Address Unknown Phone Unavailable Care Team Providers Care Rotating Field Assembler Name Role Phone Alexandrea Marrero CP Unavailable Allergies No Known Allergies Problems Problem Type Condition ICD-9 Code Onset Dates Condition Status Problem Overweight 278.02 Active Medications No Known Medications Results No Known Results Summary Purpose eClinicalWorks Submission
--- OUTSIDE RECORDS SUMMARY | 2017-03-03 13:14 | XMS REPORT | Continuity of Care Document ---
Author Author [facility] Organization [facility] Address Unknown Phone Unavailable Care Team Providers Care Road Commissioner Name Role Phone PARRIS MORRIS MD Primary Care Physician [phone] Advance Directives Directive Response Recorded Date/Time Advanced Directives Type None 01/18/15 10:28am Problems Medical Problems Problem Onset Date Status Migraine Unknown Active Muscle spasm Unknown Active Dizziness Unknown Active Migraine Unknown Active Patient left without being seen Unknown Active Right ankle sprain Unknown Active Impingement syndrome of right shoulder Unknown Active Head contusion Unknown Active Contusion of hip, right Unknown Active Right ankle sprain Unknown Active Medications Medication Dose Route Sig Days/Qty Instructions Order Date Discontinued Date Status [No Home Meds] 03/21/10 04/08/12 Discontinued [No Routine Meds] 01/18/15 Active Diclofenac Sodium 75 Mg PO TWICE A DAY 20 Qty 01/18/15 Active Cyclobenzaprine HCl 10 Mg PO THREE TIMES A DAY PRN MUSCLE SPASM 40 Qty 01/18/15 Active Social History Social History Problem Response Recorded Date/Time Hx Alcohol Use No 01/18/2015 10:20am Tobacco Usage none 01/18/2015 10:43am Query Response Start Date Stop Date Smoking Status Never smoker Hospital Discharge Instructions No hospital discharge instructions. Plan of Care No plan of care. Functional Status Query Response Date Recorded Physical Hygiene Self January 18, 2015 10:20am Disabilities None January 18, 2015 10:20am Devices Used None January 18, 2015 10:20am Dressing Self January 18, 2015 10:20am Ambulation Self January 18, 2015 10:20am Diet Self January 18, 2015 10:20am Mental Status Alert January 18, 2015 12:38pm Disabilities None January 18, 2015 10:20am Devices Used None January 18, 2015 10:20am Physical Hygiene Self January 18, 2015 10:20am Dressing Self January 18, 2015 10:20am Ambulation Self January 18, 2015 10:20am Diet Self January 18, 2015 10:20am Allergies, Adverse Reactions, Alerts Allergen Type Severity Reaction Status Last Updated Penicillin Allergy Unknown Active 01/18/15 Immunizations Name Given Type Hx Influenza Vaccination No Historical Hx Tetanus, Diptheria, Pertussis No Historical Hx Influenza Vaccination No Historical Hx Tetanus Diptheria No Historical Hx Tetanus, Diptheria, Pertussis No Historical Hx Tetanus Toxoid Vaccination No Historical Vital Signs Acute Vital Signs Vital Response Date/Time Temperature (Fahrenheit) 98.0 deg F (96.8 - 99.1) Temperature (Calculated Celsius) 36.12364 degrees C (36.0 - 37.3) Pulse Rate (adult) 81 bpm (60 - 100) Respiratory Rate 14 breaths/min (10 - 20) O2 Sat by Pulse Oximetry 97 % (90 - 100) Blood Pressure 143/96 mm Hg Height 5 ft 2 in Weight 202 lb Body Mass Index 37.0 kg/m^2 Results Test Source Date Result Interp. [...] 25, 2014 9:44pm 14.3 GM/DL N 12-16 Hepatitis B Surface Ab Concentrat January 07, 2015 10:23am Negative - Human Chorionic Gonadotropin, Qual March 30, 2011 11:25am Negative - Icterus Index July 25, 2014 9:47pm < 2 0-7 Immature Granulocyte # (Auto) July 25, 2014 9:44pm 0.04 T/MM3 H 0.00- 0.03 Immature Granulocyte % (Auto) July 25, 2014 9:44pm 0.4 % N 0.0-0.5 LDL Cholesterol, Calculated March 20, 2008 9:35am 107.71881 - Lab Scanned Report January 10, 2015 9:26am REFERENCE LAB - Lymphocytes # (Auto) July 25, 2014 [...] 25, 2014 9:44pm 10.8 UM3 N 9.4-12.4 Measles/Mumps/Rubella Immunity January 07, 2015 10:23am - - . <0.91= Negative. 0.91 - 1.09=Equivocal . >1.09=Positive Positive results suggest response to immunization or prior exposure. Measles IgG performed at [facility], [address] [place] [address] Machine Woodworking Sander Sunshine Sterling DO Monocytes # (Auto) July 25, 2014 9:44pm 0.6 T/MM3 N 0-0.8 Monocytes # (Manual) August 29, 2009 1:45am 0.7 T/MM3 N 0-0.8 Monocytes % (Manual) August 29, 2009 1:45am 5.0 % N 0-9.0 Monocytes (%) (Auto) July 25, 2014 9:44pm 5.5 % N 0-9.0 Mumps IgG Antibody Index January 07, 2015 10:23am 1.78 OD Ratio - Mumps IgG performed at [facility], [facility] [address] [place], [place] [address]Gwepfgv Director Sunshine Sterling DO Mumps Virus IgG Antibody January 07, 2015 10:23am Positive - Neutrophils # (Auto) July 25, 2014 9:44pm [...] Screen January 07, 2015 10:23am Positive - Rubeola (Measles) IgG Ab Index January 07, 2015 10:23am 2.52 OD Ratio - Measles IgG performed at [facility], [address] [place] [id number] Director Sunshine Sterling DO Rubeola (Measles) IgG Antibody January 07, 2015 10:23am Positive - Sodium Level July 25, 2014 9:47pm 141 MEQ/L N 134-144 TB Test (T-Spot) January 07, 2015 10:23am Positive - It is recommended that Borderline and Invalid results beretested with a new speicmen. T-SPOT TB tested at [facility], [address] [place] [address], [place] [address]. CLIA#[id number] Thyroid Stimulating Hormone (TSH) March 20, 2008 [...] Has specimen been collected/obtained? Y Urine Specific [place] July 25, 2014 10:21pm >=1.030 H - [...] 2013 12:49pm Name: MOHIT COPELAND Unit #: [id number] : 1965 Sex: F Loc / Svc: ED DOS: 01/18/15 Signed Report #: [id number] DIAGNOSTIC IMAGING REPORT TYPE OF EXAM: ANKLE RIGHT 3 VIEW Dictated By: LETI PEREIRA MD Indication: ITS.REASON: fall, right ankle pain Comparison: None Findings: Bony mineralization is normal. The visualized osseous structures appear intact with no acute fracture identified. The tibiotalar joint is congruent. No osteochondral defects of the tibial plafond or talar dome identified. Mild degenerative arthrosis of the mid and hindfoot. No focal radiographically apparent soft tissue swelling. No radiopaque foreign body. Impression: No acute fracture or malalignment. . Procedures No known history of procedures. Encounters Encounter Location Date/Time Departed Emergency Room [facility] 01/18/15 10:16am Departed Emergency Room [facility] 01/07/15 11:48am Recent Diagnosis
--- OUTSIDE RECORDS SUMMARY | 2017-03-03 13:14 | XMS REPORT ---
Author Author Alexandrea Marrero [facility] eClinicalWorks Address Unknown Phone Unavailable Care Team Providers Care Senior Vice President & General Counsel Name Role Phone Alexandrea Marrero CP Unavailable Allergies No Known Allergies Problems Problem Type Condition Code Onset Dates Condition Status Problem Overweight 278.02 Active Problem Type 2 diabetes mellitus without complications E11.9 Active Medications Medication Code System Code Instructions Start Date End Date Status Dosage Bactrim DS [facility] [address]-38 800-160 MG Orally Twice a day February 17, 2016 February 22, 2016 1 tablet Results No Known Results Summary Purpose eClinicalWorks Submission
--- OUTSIDE RECORDS SUMMARY | 2017-03-03 13:15 | XMS REPORT ---
Author Author Yolande Toure Organization [employer]Clinical[employer] Address Unknown Phone Unavailable Care Team Providers Care Cork Compounder Name Role Phone Yolande Toure CP Unavailable Allergies No Known Allergies Problems Problem Type Condition ICD-9 Code Onset Dates Condition Status Assessment Dermatophytosis of nail 110.1 Active Assessment Unspecified cellulitis and abscess of toe 681.10 Active Problem Overweight 278.02 Active Medications No Known Medications Procedures Procedure Coding System Code Date Lidocaine injection CPT-4 J2001 January 08, 2015 INJECTION (plus drug) CPT-4 25311 January 08, 2015 DEBRIDEMENT OF NAILS, 1-5 CPT-4 83988 January 08, 2015 Results No Known Results Summary Purpose eClinicalWorks Submission
--- OUTSIDE RECORDS SUMMARY | 2017-03-03 13:15 | XMS REPORT | Referral Summary ---
Author Author [facility] Organization [facility] Address Unknown Phone Unavailable Care Team Providers Care Manager Financial Services Name Role Phone Alexandrea Marrero Primary Care Physician [phone] Encounter VC Date(s): 06/11/15 - 06/11/15 [facility] [address] [place] [address]- Discharge Disposition: 01-Home or Self Care Attending Physician: Bernardo Perrin MD Admitting Physician: Bernardo Perrin MD Vital Signs Most recent to 1 oldest [Reference Range]: Temperature Tympanic 37.2 degC [36.6-38.1 degC] (06/11/15 2:19 PM) Peripheral Pulse 104 bpm Rate [60-100 bpm] *HI* (06/11/15 2:19 PM) Respiratory Rate 18 br/min [14-20 br/min] (06/11/15 2:19 PM) Blood Pressure 124/84 mmHg [90-140/60-90 mmHg] (06/11/15 2:19 PM) Problem List Condition Effective Dates Status Health Status Informant Acute back Active pain(Confirmed) Strain of lumbar Active region(Confirmed) Obesity(Confirmed) Active patient Allergies, Adverse Reactions, Alerts Substance Reaction Severity Status [place] Dizziness Medium Active Nausea penicillin Active Medications ibuprofen 0 Refill(s) Start Date: 09/05/14 Status: Ordered meloxicam 15 mg oral tablet 15 mg 1 tabs, Oral, Daily, # 30 tabs, 1 Refill(s), Pharmacy: [facility] [address], 1 tabs Oral Daily,x30 days Start Date: 07/18/15 Stop Date: 09/16/15 Status: Ordered Results No data available for this section Immunizations No data available for this section Procedures Procedure Date Related Diagnosis Body Site Cardiac catheterization 04/10/15 Social History Social History Type Response Smoking Status Never smoker Assessment and Plan Extracted from: Title: Office Visit Note Author: Bernardo Perrin MD Date: 06/11/15 Assessment/Plan Strain of lumbar region Plan: I think you have a strained muscle inyour lower back. This may take several weeks to recover from. I want you to continue physical therapy and the current medications and restrictions. Follow up in 3 weeks.
--- OUTSIDE RECORDS SUMMARY | 2017-03-03 13:15 | XMS REPORT ---
Author Author Alexandrea Marrero Organization [employer]ClinicalWorks Address Unknown Phone Unavailable Care Team Providers Care Field Foreman Name Role Phone Alexandrea Marrero CP Unavailable Allergies, Adverse Reactions, Alerts Substance Reaction Event Type Penicillin throat swelling Drug Allergy Problems Problem Type Condition ICD-9 Code Onset Dates Condition Status Assessment Hematuria, unspecified 599.70 Active Assessment Unspecified urinary incontinence 788.30 Active Problem Overweight 278.02 Active Medications Medication Code System Code Instructions Start Date End Date Status Dosage Ibuprofen [facility] [address]-43 600 MG Orally every 6 hrs Jul 27, 2014Sep Active 1 tablet Cyclobenzaprine HCl [facility] [address]-91 10 MG Orally up to three times a day. May cause drowsiness Jul 27, 2014 Sep 25, 2014 Active 1 tablet Procedures Procedure Coding System Code Date OFFICE VISIT, EST-LOW COMPLEXITY (15 MIN.) CPT-4 87547 Aug 14, 2014 URINALYSIS, IN HOUSE CPT-4 06905 Aug 14, 2014 Vital Signs Date/Time: Aug 14, 2014 Height 62 inches Weight 202.12 lbs Temperature 97.8 F Blood Pressure Diastolic 60 mm Hg Blood Pressure Systolic 110 mm Hg Cardiac Monitoring Heart Rate 66 Beats per Minute BMI 36.96 Index Respiratory Rate 18 per Minute Results Name Result Date Reference Range Unit In House Urinalysis, automated Summary Purpose eClinicalWorks Submission
[2017-03-03 13:18] VITALS: Ht 157.5 cm; Wt 79.5 kg
[2017-03-03] MEDS ORDERED: FLUC150T5 PO (13:41)
[2017-03-03] MEDS ORDERED: IBUP-1842 PO (13:41)
[2017-03-03] MEDS ORDERED: METF10002 PO (13:44)
--- NOTE | 2017-03-03 13:54 | ERPDOC ---
Departure Disposition Decision Date: March 03, 2017 Disposition Decision Time: 14:43 Disposition: 01 DISCHARGED HOME, SELF-CARE Impression Impression Impression: Primary Impression: Cellulitis of neck Additional Impression: Hyperglycemia Severity: Moderate Condition: Improved Seen By: Physician only Referrals: LOVE PASTRANA APRN (Family) 1 Week Patient Instructions: Cellulitis (ED) Problems/Meds/Labs Reviewed?: Yes Medications reviewed and manag: Yes Additional Instructions: You likely have a soft-tissue infection of the skin over your neck. This is a risk, anytime something cuts, scrapes, or pierces your skin. Take the antibiotics as prescribed and follow up with your doctor. Follow up care ordered?: Yes Mental Status: Alert, Oriented Scripts Sulfamethoxazole/Trimethoprim (Bactrim Ds Tablet) 1 Each Tablet 1 TAB PO BID for 7 Days, #14 TAB Prov: FEBRUARYZAY DO 03/03/17 HPI - Skin General General Chief Complaint: Skin Injury Stated Complaint: SPIDER BITE BEHIND LEFT EAR Time Seen by Provider: 13:47 Source: patient Exam Limitations: no limitations HPI - Skin General Initial Comments 51yo woman presents to the ER with left neck swelling and pain. Pt felt something crawling on her neck two days ago. She grabbed at the sensation and threw down a creature with many legs. Since then, she has had pain behind her jaw, erythema, edema, and a burning sensation in her mouth with chewing. Occurred At: home Onset: Rapid Duration: other Pain Scale: Now & Worst: 5/10 Severity: moderate Location: face 1 - Edema, erythema, TTP Possible Cause: insect bite Associated Symptoms: change in skin texture, edema Allergies: Coded Allergies: Penicillins (Verified Allergy, Unknown, 03/03/17) hydrocodone (Verified Allergy, Unknown, 03/03/17) Uncoded Allergies: unknown anesthetic (Allergy, Unknown, "throat closed up", 04/10/15) Past History Past Medical History Female: , living children, para Musculoskeletal: back pain, other Surgical History Reproductive/: hysterectomy Family History Family PMH: FOUND: CAD, ID Vaccines Hx Influenza Vaccination: No Hx Pneumococcal Vaccination: No Hx Tetanus Diptheria: No Hx Tetanus, Diptheria, Pertuss: No Review of Systems ENMT Jaw: pain Comments Erythema, edema, and itching. Physical Exam General General Nourishment: well nourished, well developed, appears stated age, no acute distress, adult, obese General Body Habitus: well groomed Vitals and Pain First Documented Vital Signs Date Time Temp Pulse Resp B/P Pulse Ox O2 Delivery O2 Flow Rate FiO2 03/03/17 13:18 99.1 108 20 144/71 95 Room Air Weight: Kilograms: 79.500 Height (feet): 5 Height (inches): 2.00 Triage Pain Scale: RN VS reviewed by Provider: Yes Normal Exams: Head: Normocephalic w/o trauma Eyes: Pupils are PERRLA w/ EOMI, No scleral icterus, irritation ENMT: No facial trauma, nasal exudates, pharyngeal erythema Neck: Full range of motion, without adenopathy, JVD Lymphatic: No lymphadenopathy Musculoskeletal: No tenderness, or deformity noted Integumentary: No rashes, hives, or bruising noted Neurologic: Patient is alert, and oriented Psychiatric: Patient exhibits, appropriate attention Neck (brief) Neck: FOUND: other (Erythema, edema, pruritis), trachea midline, NOT FOUND: adenopathy, thyromegaly Respiratory (brief) Respiratory: FOUND: symmetrical, NOT FOUND: wheezes Supervisory Exam Neck: trachea midline Chest: symmetric Abdomen: non-distended Differential Diagnoses Considering: Abrasion, Abscess, Bite, Carbuncle, Contact Dermatitis, Folliculitis, Furuncle, Insect Sting Progress Results/Orders Orders Procedure Category Date Status Time Ct Neck W/O Contrast CT 03/03/17 Resulted 13:49 Hemagram - Cbc No Diff LAB 03/03/17 Complete Bmp - Basic Metabolic LAB 03/03/17 Complete Panel Diphenhydramine PHA 03/03/17 Complete (Benadryl) 14:45 Naproxen (Naprosyn PHA 03/03/17 Complete 500mg) 14:45 Sulfamethoxazole/Trimethoprim PHA 03/04/17 In Process (Bactrim D 09:00 Lab Results Laboratory Tests Test 03/03/17 14:29 White Blood Count 7.2T/MM3 Red Blood Count 4.69M/MM3 Hemoglobin 13.9GM/DL Hematocrit 40.6% Mean Corpuscular Volume 86.6UM3 Mean Corpuscular Hemoglobin 29.6UUG Mean Corpuscular Hemoglobin Concent 34.2GM/DL RDW Standard Deviation 37.0FL Platelet Count 227T/MM3 Mean Platelet Volume 11.7UM3 Turbidity < 20 Sodium Level 138MEQ/L Potassium Level 4.1MEQ/L Chloride Level 98MEQ/L Carbon Dioxide Level 26MEQ/L Anion Gap 14MEQ/L Blood Urea Nitrogen 13.0MG/DL Creatinine 0.7MG/DL Glomerular Filtration Rate Calc 89 BUN/Creatinine Ratio 19RATIO Glucose Level 577MG/DL Calculated Osmolality 293MOSM/KG Calcium Level 9.1MG/DL Icterus Index < 2 Chemistry Specimen Hemolysis < 15 Medications Current ED Medications Diphenhydramine HCl (Benadryl) 50 mg O ONCE PO Last administered on 03/03/17 15:01; Start 03/03/17 at 14:45; Stop 03/03/17 at 14:46; Status DC Naproxen (NAPROSYN 500mg) 500 mg O ONCE PO Last administered on 03/03/17 15: 00; Start 03/03/17 at 14:45; Stop 03/03/17 at 14:46; Status DC Trimethoprim/ Sulfamethoxazole (Bactrim Ds) 1 tab DAILY PO Last administered on 03/03/17 15:00; Start 03/04/17 at 09:00 Progress Progress 51yo woman with evidence of cellulitis without abscess. Will treat with PO atbx. Pt voiced understanding of dx, prognosis, tx, and f/u need. Discussed pts BG with PCM, due to how high it was. Pt is AAO with BG in 500s. Per PCM, pt is noncompliant with all medications and diet/lifestyle changes. PCM and paramedical aide have had numerous conversations with pt; no positive result. Pts A1c last year was 12. A1c 1 week ago was 13. Pt will need to f/u with PCM; will likely need insulin. Discussed this with pt; pt voiced understanding. Low likelihood that pt will follow through. CT CT : CT: Other (neck) Interpretation: Abnormal (Cellulitis without abscess), Reviewed Written Report ZAY HAMLIN DO March 03, 2017 13:54
--- NOTE | 2017-03-03 14:00 | NUR ---
CT Patient out to CT
--- NOTE | 2017-03-03 14:08 | NUR ---
CT Patient returns
--- NOTE | 2017-03-03 14:20 | DI ---
Indication: ITS.REASON: Swelling, erythema PROCEDURE: CT NECK W/O CONTRAST: Encounter: Initial Technique: Axial noncontrast CT imaging through the neck was performed with coronal and sagittal two-dimensional reformats. Automated Exposure Control and Iterative Reconstruction dose reducing techniques were utilized. Comparison: None Findings: The lung apices are grossly clear. Evaluation is somewhat limited without IV contrast. Thyroid gland is unremarkable. The parotid and submandibular glands appear normal. Scattered small bilateral cervical lymph nodes. No masses or obvious fluid collections seen. No pathologic lymphadenopathy by CT size criteria. Muscular attenuation is normal. Bone windows are within normal limits. No mucosal based mass lesions seen. The parapharyngeal fat spaces are normal. There is minimal soft tissue edema seen superficial to the left platysma muscle. Impression: Subtle superficial edema in the left mid neck could be due to early or mild cellulitis. No evidence of abscess. .
--- NOTE | 2017-03-03 14:30 | NUR ---
Lab Lab in room for blood draw
--- OUTSIDE RECORDS SUMMARY | 2017-03-03 14:35 | XMS REPORT | Continuity of Care Document ---
Author Author [facility] Organization [facility] Address Unknown Phone Unavailable Care Team Providers Care Nursery Rn Name Role Phone PARRIS MORRIS MD Primary Care Physician [phone] Problems Medical Problems Problem Onset Date Status [...] F (96.8 - 99.1) Temperature (Calculated Celsius) 36.97868 degrees C (36.0 - 37.3) Pulse Rate [...] LDL Cholesterol, Calculated March 20, 2008 9:35am [phone] - Lab Scanned Report January 07, 2015 [...] Has specimen been collected/obtained? Y Urine Specific [place] July 25, 2014 10:21pm >=1.030 H - [...] Encounters Encounter Location Date/Time Departed Emergency Room [facility] 01/07/15 11:48am Recent Diagnosis
--- OUTSIDE RECORDS SUMMARY | 2017-03-03 14:36 | XMS REPORT | Continuity of Care Document ---
Author Author [facility] Organization [facility] Address Unknown Phone Unavailable Care Team Providers Care Wharf Laborer Name Role Phone PARRIS MORRIS MD Primary Care Physician [phone] Advance Directives Directive Response Recorded Date/Time Advanced [...] F (96.8 - 99.1) Temperature (Calculated Celsius) 36.57317 degrees C (36.0 - 37.3) Pulse Rate [...] LDL Cholesterol, Calculated March 20, 2008 9:35am [phone] - Lab Scanned Report January 10, 2015 [...] or prior exposure. Measles IgG performed at [facility], [address] [place] [address] Manager Product Sunshine Sterling DO Monocytes # (Auto) July 25, 2014 9:44pm 0.6 T/MM3 N 0-0.8 Monocytes # (Manual) August 29, 2009 1:45am 0.7 T/MM3 N 0-0.8 Monocytes % (Manual) August 29, 2009 1:45am 5.0 % N 0-9.0 Monocytes (%) (Auto) July 25, 2014 9:44pm 5.5 % N 0-9.0 Mumps IgG Antibody Index January 07, 2015 10:23am 1.78 OD Ratio - Mumps IgG performed at [facility], [facility] [address] [place], [place] [address]Drquyfv Director Sunshine Sterling DO Mumps Virus IgG [...] OD Ratio - Measles IgG performed at [facility], [address] [place] [id number] Director Sunshine Sterling DO Rubeola (Measles) IgG Antibody January 07, 2015 10:23am Positive - Sodium Level July 25, 2014 9:47pm 141 MEQ/L N 134-144 TB Test (T-Spot) January 07, 2015 10:23am Positive - It is recommended that Borderline and Invalid results beretested with a new speicmen. T-SPOT TB tested at [email or web address], [address] [place] [address], [place] [address]. CLIA#[id number] Thyroid Stimulating Hormone (TSH) March 20, 2008 [...] Has specimen been collected/obtained? Y Urine Specific [place] July 25, 2014 10:21pm >=1.030 H - [...] 2013 12:49pm Name: MOHIT COPELAND Unit #: [id number] : 1965 Sex: F Loc / Svc: ED DOS: 01/18/15 Signed Report #: [id number] DIAGNOSTIC IMAGING REPORT TYPE OF EXAM: ANKLE [...] Encounters Encounter Location Date/Time Departed Emergency Room [facility] 01/18/15 10:16am Departed Emergency Room [facility] 01/07/15 11:48am Recent Diagnosis
--- OUTSIDE RECORDS SUMMARY | 2017-03-03 14:36 | XMS REPORT | Continuity of Care Document ---
Author Author [facility] Organization [facility] Address Unknown Phone Unavailable Care Team Providers Care Tobacco Classer Name Role Phone LOVE PASTRANA APRN Primary Care Physician [phone] Insurance Providers Payer Name Policy Number Subscriber [...] F (96.8 - 99.1) Temperature (Calculated Celsius) 36.29119 degrees C (36.0 - 37.3) Pulse Rate [...] LDL Cholesterol, Calculated March 20, 2008 9:35am [phone] - Lymphocytes # (Auto) July 25, 2014 [...] Has specimen been collected/obtained? Y Urine Specific [place] July 25, 2014 10:21pm >=1.030 H - [...] 07, 2013 7:39pm LAB TEST FORM REQUEST [id number] - HDL Cholesterol Direct March 20, 2008 [...] 2013 12:49pm Name: MOHIT COPELAND Unit #: [id number] : 1965 Sex: F Loc / Svc: [facility] DOS: 06/13/14 Signed Report #: [id number] DIAGNOSTIC IMAGING REPORT TYPE OF EXAM: CT [...] Encounters Encounter Location Date/Time Departed Emergency Room [facility] 07/25/14 8:48pm Registered Clinic [facility] 06/13/14 10:25am Recent Diagnosis
[2017-03-03 14:44] LABS: HCT - HEMATOCRIT 40.6 % (36-46); HGB - HEMOGLOBIN 13.9 GM/DL (12-16); MEAN CORPUSCULAR HGB 29.6 UUG (26-34); MEAN CORPUSCULAR HGB CONC(MCHC 34.2 GM/DL (31-37); MEAN CORPUSCULAR VOLUME 86.6 UM3 (80-100); MEAN PLATELET VOLUME 11.7 UM3 (9.4-12.4); RED BLOOD COUNT 4.69 M/MM3 (4.00-5.20); WBC - WHITE BLOOD COUNT 7.2 T/MM3 (4.5-11.0)
[2017-03-03] MEDS ORDERED: NAPROXEN 500 MG TABLET PO ONE (14:45)
[2017-03-03] MEDS ORDERED: SULF1TAB42 PO (14:45)
[2017-03-03] MEDS ORDERED: DiphenhydrAMINE 25 MG CAPSULE PO ONE (14:45)
[2017-03-03 14:47] LABS: ANION GAP 14 MEQ/L (5-15); BUN/CREATININE RATIO 19 RATIO (6-26); CALCIUM 9.1 MG/DL (8.4-10.2); CHLORIDE 98 MEQ/L (98-107); CO2 - CARBON DIOXIDE 26 MEQ/L (22-30); CREATININE 0.7 MG/DL (0.7-1.2); GLOMERULAR FILTRATION RATE 89; GLUCOSE 577 MG/DL (65-110); POTASSIUM 4.1 MEQ/L (3.6-5); SODIUM 138 MEQ/L (134-144)
[2017-03-03 15:10] VITALS: BP 148/75; PULSE 110; RESP 20; TEMP 99.1; O2SAT 96
[2017-03-04] MEDS ORDERED: SULFAMETHOXAZOLE/TMP 800mg/160mg TABLET PO SCH (09:00)
== END 2017-03-03 15:10 | disposition home or self-care (01) ==
LOC: ED 13:09
DX: L03.221 Cellulitis of neck (principal); R73.9 Hyperglycemia, unspecified
CPT/HCPCS: 36415; 80048; 85027